=== PATIENT | female | born 1995 | race Caucasian/White ===

== ENCOUNTER 2017-06-01 13:05 | Inpatient (IN) | payer OTHER ==
--- NOTE | 2017-06-01 13:20 | EDPHY ---
General Time Seen by Provider: 06/01/17 13:10 Narrative: CHIEF COMPLAINT: M1 HISTORY OF PRESENT ILLNESS: Patient presents on an M1 hold after voluntarily presenting to [facility] at [facility] for increasing depression and intermittent thoughts of self-harm. She admits to increasing depression and stressed due to 3 concerts she has had to perform of the past few days. 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 She has had depression for the past year, most recently treated with Zoloft. Zoloft has helped her for the most part. Over the past few days, she has had increasing depression and thoughts of self-harm. She has intermittent thoughts of allowing traffic to hit her and she crosses the street. She denies any intent at this time but does admit to having increasing thoughts of this. She presented voluntarily due to these thoughts. She expresses that she wants to get better but needs help. She denies any attempt to hurt herself today. She has no complaints of systemic illness at this time. No other associated complaints or modifying factors. PSYCHIATRIC DIAGNOSES: Depression, anxiety PRIOR PSYCHIATRIC EVALUATIONS: Outpatient therapy at [facility] M1/DETAINER: Licensed mental health worker at [facility] at 12:15 p.m. REVIEW OF SYSTEMS: Ten systems reviewed and are negative unless otherwise noted in the HPI EXAMINATION General Appearance: Alert, no distress. Well-developed and well-nourished. Tearful but consolable Head: normocephalic, atraumatic Eyes: Pupils equal and round, no conjunctival pallor or injection ENT, Mouth: Mucous membranes moist Neck: Normal inspection, supple, non-tender Respiratory: Lungs are clear to auscultation Cardiovascular: Regular rate and rhythm. No murmur Gastrointestinal: Abdomen is soft and nontender Back: non-tender, no bony abnormalities Neurological: A&O, nonfocal, normal gait Skin: Warm and dry, no rash Extremities: Nontender, no pedal edema Psychiatric: Depressed mood and flat affect. Admits to suicidal ideation with with no intent at this time, but she has had plans of allowing traffic to hit her when she crosses the street DIFFERENTIAL DIAGNOSES: Including but not limited to depression, anxiety, suicidal ideation MDM: 1:20 p.m. M1 hold due to depression and suicidal ideation. This is after voluntarily presenting to [facility] at [facility]. She presented voluntarily and does want to get better. She has contracted for safety. We discuss medical clearance and further evaluation. She has agreed to proceed. She is cooperative and in no acute distress. I have notified both charge nurse and the RN that there are discrepancies on the M1 hold the need to be evaluated. This includes the time and that there and has mentation as to which criteria are met for M1 2:18 p.m. At this time patient is medically cleared for evaluation. I have notified Jossie HAMMER. 3:15 p.m. Patient is currently undergoing her evaluation at this time. 4:40 p.m. I have re-evaluated the patient this time. She is resting comfortably. She has completed her evaluation and is awaiting recommendation from mental health professional. I have discussed with Dr. Moss at this time. He will assume care the patient. Please see his note for final disposition. SUPERVISION: Patient was evaluated and examined in conjunction with my secondary supervising physician as documented. We have both examined the patient. (Steven Farmer) Medical Decision Making: PHYSICIAN DOCUMENTATION: The patient was evaluated and managed by the Physician Funeral Driver and myself. I have reviewed the chart and agree with the findings and plan of care as documented. In addition, I examined the patient myself at 1345. History confirmed as increasing depression with thoughts of walking into traffic. Physical findings as follows: Not delusional, does have depression and suicidal ideation. Denies drugs or overdose. On a mental health hold on arrival, suicidal ideation with plan. Plan for psychiatric placement. Signed out to Ajay at 1500. I am the secondary supervising physician. (Ned Schmitt) I assumed care of the patient at 2:45pm. The patient was accepted for inpatient psychiatric hospitalization at [facility]. (Berny Moss) - Objective Vital Signs: Initial Vital Signs Temperature (C) 98.1 F 06/01/17 13:18 Heart Rate 81 06/01/17 13:18 Respiratory Rate 16 06/01/17 13:18 Blood Pressure 138/78 H 06/01/17 13:18 O2 Sat (%) 96 06/01/17 13:18 O2 Delivery Mode Room Air Allergies/Adverse Reactions: No Known Allergies Allergy (Unverified 06/01/17 13:26) Home Medications: Medication Instructions Recorded Control Pill 1 ea PO DAILY 06/01/17 Sertraline HCl [Zoloft 100mg (*)] 100 mg PO DAILY 06/01/17 Laboratory Results: Laboratory Results 06/01/17 13:32 06/01/17 13:32 Medications Given: Discontinued Medications Sertraline HCl (Zoloft) 100 mg PO DAILY FRANCESCA Stop: 11/29/17 08:59 Last Admin: 06/02/17 08:24 Dose: 100 mg Sertraline HCl (Zoloft) 50 mg PO ONCE ONE Stop: 06/02/17 11:10 Last Admin: 06/02/17 11:38 Dose: 50 mg Departure - Departure Disposition: [facility] IP Clinical Impression: Severe major depression, Suicidal ideation Condition: Good
[2017-06-01 13:35] LABS: PLATELET COUNT 389 10^3/uL (150-400)
[2017-06-01] MEDS ORDERED: MAG HYDROX/AL HYDROX/SIMETH 30 ML UDCUP PO PRN (21:19)
[2017-06-01] MEDS ORDERED: MAGNESIUM HYDROXIDE 30 ML UDCUP PO PRN (21:19)
[2017-06-01] MEDS ORDERED: NICOTINE POLACRILEX 2 MG GUM B PRN (21:19)
[2017-06-01] MEDS ORDERED: LORazepam 0.5 MG TAB PO PRN (21:19)
[2017-06-01] MEDS ORDERED: ACETAMINOPHEN 325 MG TAB PO PRN (21:19)
[2017-06-01] MEDS ORDERED: MELATONIN 3 MG TAB PO PRN (21:20)
[2017-06-02] MEDS ORDERED: SERTRALINE HCL 100 MG TAB PO SCH (09:00)
[2017-06-02] MEDS ORDERED: SERTRALINE HCL 50 MG TAB PO ONE (11:09)
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
--- NOTE | 2017-06-02 16:17 | BCON ---
[f rep st] BEHAVIORAL HEALTH CONSULTATION INTERNAL MEDICINE CONSULTATION DATE OF CONSULTATION: 06/02/2017 REFERRING PHYSICIAN: Farhan Lubin MD REASON FOR REFERRAL: Medical clearance for inpatient behavioral health stay. HISTORY OF PRESENT ILLNESS: This patient came to the emergency department on an M1 hold, referred from the [facility] at [facility] for suicidal ideation and depression. She was evaluated by the mental health team and admitted for further psychiatric care. She currently complains of feeling tired. She has no other acute medical complaints. PAST MEDICAL HISTORY: 1. Appendicitis. 2. Depression. PAST SURGICAL HISTORY: She has had an appendectomy and a tonsillectomy. MEDICATIONS: She was taking sertraline and a control pill. ALLERGIES: There are no known drug allergies. 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 She lives with a roommate. She is a nonsmoker. She uses occasional alcohol. FAMILY HISTORY: She has an uncle who committed suicide. Otherwise, there is no significant family history of medical issues. REVIEW OF SYSTEMS: She feels tired. She reports that she snores. However, generally, when she awakens, she feels refreshed in the morning. She has had weight gain over the past year. She does not think her snoring has gotten worse with the weight gain. She denies cough or dyspnea, fevers or chills, pain , nausea, vomiting, constipation, or diarrhea. Otherwise, a 10-point review of systems is negative. PHYSICAL EXAM: VITAL SIGNS: Blood pressure is 107/73, heart rate is 79, respiratory rate is 16, oxygen saturation is 96% on room air. Temperature is 36.3 degrees centigrade. Her weight is 81.6 kg for a body mass index of 27.4. GENERAL: This is an overweight woman who appears her chronologic age, sitting up in bed, dressed in street clothes, cooperative and in no acute distress HEENT: Extraocular movements are intact. Pupils are equal, round, reactive to light. Mucous membranes are moist. Dentition is in good condition. She has a moderately crowded airway, Mallampati class 3. NECK: Supple. HEART: There is a regular rate and rhythm with no murmurs, rubs, or gallops. LUNGS: Clear to auscultation bilaterally. ABDOMEN: Benign. EXTREMITIES: There is no cyanosis, clubbing, or edema. NEUROLOGIC: She is alert and oriented x3. Cranial nerves 2-12 are grossly intact. There is no focal weakness and sensation is intact to light touch. LABORATORY STUDIES: From the emergency department, CBC showed a slightly elevated white blood cell count at 10.36 with a predominance of neutrophils and eosinophils. There was no left shift. Serum chemistry revealed normal renal function and electrolytes, and beta hCG was negative for . Toxicology screen in the serum was negative for ethyl alcohol, salicylates and acetaminophen. Urine toxicology screen was negative for any substances of abuse. ASSESSMENT/RECOMMENDATIONS: 1. Mental health issues, pending further evaluation and management per Psychiatry and the mental health team. 2. Weight gain, might be associated with her mental health issues. Advise caution regarding medications which could cause further weight gain. Encouraged exercise. I see no medical contraindications to this patient's continued stay on the inpatient behavioral health unit or to any psychiatric medications or procedures. Thank you very much for including me in the care of this patient and please do not hesitate to contact me or the hospitalist service should there be need for further medical evaluation. /[id number]/MODL MTDD
[2017-06-03 06:19] VITALS: BP 109/65
[2017-06-03] MEDS ORDERED: SERTRALINE HCL 100 MG TAB PO SCH (09:00)
--- NOTE | 2017-06-03 13:42 | BDS ---
[f rep st] BEHAVIORAL HEALTH DISCHARGE SUMMARY REASON FOR ADMISSION: Patient is a 21-year-old female, freshman at [employer], who presented to [facility] on 06/01/2017 and was placed on a mental health hold based on having suicidal thoughts earlier in the week, which were passive SI. Mental health hold states that (quote) student is being treated at [facility] for depression. Reports being consistent with her meds. Starting last Tuesday, her mood has dropped significantly with no let up. Friends are not responsive. She is unable to attend class. SI has increased, and patient had a plan to step in front of traffic. Client disclosed that she was not actively suicidal, but that she just had decided to not look both ways when crossing the street on Tuesday prior to admission. Says that she has not had urges to self-harm or commit suicide since Tuesday. ADMITTING DIAGNOSES: 1. Major depressive disorder, recurrent, severe, without psychotic features. 2. Psychosocial stressors include academic pressures, academic case load, interpersonal relationship stressors, conflict with peers, financial problems, and lack of social support. PHYSICAL EXAMINATION: Admitting physical examination was done by Dr. Dylon Richmond. Please see his H and P for details. ADMISSION LABS: Done in the [facility] ED on 06/01/2017: White cell count was 10.36, hemoglobin 14.7, hematocrit 43.2, platelet count 389. Her sodium was 143 , potassium 4.3, chloride 106, BUN 16, creatinine 0.6, and glucose 78. Calcium 9.2. Beta hCG was negative. Her urine tox screen was negative for all substances of abuse. Her salicylate and acetaminophen levels were less than 10. Ethyl alcohol was also less than 10. HOSPITAL COURSE: Patient was admitted on a mental health hold. When she was evaluated by this MD in the inpatient behavioral services unit, she clarified that she never had a suicidal plan or intent. She says that on Tuesday prior to admission, after having a very stressful week, including 3 concerts to prepare for, she did not press the button to cross the street, crossed against the light, and did not look whether there was any traffic coming. She denies that she has had any urges, thoughts, plans, or intent to harm herself since Tuesday. She says that she does occasionally still have passive SI. She says , if she were to , I am not sure how I would feel about that (end of quote), but does not endorse any thoughts about actively harming herself or any plan or intent to carry through any such actions. Patient states that she has been having increased stressors, particularly her course work at school has gotten very intense. She is taking steps to minimize that stress by taking fewer credit hours next semester, which she says should be very helpful for her mood and to help decrease her anxiety. She says that she has also been undergoing some stress with her friends and her social group. 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 This MD did talk to the patient about the risks, benefits, and side effects of being on an SSRI and let the patient know that it would be possible to increase her sertraline dose from 100 mg to 150 mg, and that she might experience more benefit for her mood and for anxiety. She says that the medication has been helpful since she started taking it in January. Says that she feels like her mood has improved and that she has had an easier time handling some of her stress, but she says that she feels like the pressure has become "overwhelming, " and that her main issue right now is managing her anxiety and dealing with all the stressors that are affecting her life. This MD spent a long amount of time addressing interventions that could be helpful in minimizing the patient's anxiety and reducing her stress level. This MD talked about mindfulness-based stress reduction as well as other forms of cognitive behavioral therapy that could be used to help the patient deal more effectively with her stressors, and patient said that she would be interested in pursuing that type of treatment and was open to seeing an individual therapist as well as participating in group therapy. She gave informed consent to increase her Zoloft from 100 mg daily to 150 mg daily. That was done on 06/02/2017 without any side effects. The patient had no physical complaints and denied any adverse reactions to the increased dose of SSRI throughout her hospital stay. On day of discharge (06/03/2017), the patient was euthymic. She denied feeling sad, depressed, helpless, hopeless. She was future oriented and optimistic about getting back into school. She was looking forward to going home with her family and spending the weekend at her parents' house in [place] and said that she would be finishing up the semester and then she would move in with her parents and stayed there over the summer. She would continue to get outpatient treatment here in [place]. She was given referrals to the [facility], and she was also given information about the intensive outpatient program through [facility]. Patient denied any thoughts, plans, or intents to hurt herself throughout her hospitalization. She was able to contract for safety. She did not endorse SI at all. She also reported that her anxiety was much better and that her mood was "good." CONDITION AT DISCHARGE: Patient is stable. Her affect is euthymic. She is denying any thoughts, plans, or intents to hurt herself or anyone else. There is no evidence of psychosis or christian. She was compliant with medications and denied any side effects or adverse affects. DISCHARGE MEDICATIONS: Include sertraline 150 mg p.o. daily, and over-the- counter control. DISCHARGE DIAGNOSES: 1. Major depressive disorder, recurrent, severe, without psychotic features. 2. Psychosocial stressors include lack of social support, conflict with peers, interpersonal relationship stressors, academic pressures, financial problems. DISPOSITION: The patient was taken off the mental health hold and was placed on voluntary status prior to discharge. Her mother came and picked her up, and the plan was for the patient to go and stay at her parent's home through the weekend and possibly for the rest of the school semester. Mother said that she would supervise and monitor the patient and also assist the patient with getting outpatient services. The patient has a followup appointment with her outpatient prescriber at [facility], Dr. Tate, on June 17. She also has an intake appointment at [facility] on 06/07, and she has an appointment with a embedded case manager at [facility] on 06/06/2017. LEGAL COURSE: The patient was on a mental health hold, which was dropped prior to her discharge. /[id number]
== END 2017-06-03 13:18 | disposition home or self-care (01) | DRG 885 ==
LOC: EEVIPCON 13:05 → BBEH 19:55
PROVIDERS: ADMIT Psychiatry & Neurology Psychiatry; ATTEND Psychiatry & Neurology Psychiatry
DX: F33.2 Major depressive disorder, recurrent severe without psychotic features (principal); Z55.8 Other problems related to education and literacy; Z60.8 Other problems related to social environment
CPT/HCPCS: 80305; G0480